=== PATIENT | male | born 1965 | race African-American/Black ===

== ENCOUNTER 2017-08-19 15:10 | Emergency (ER) | payer BC ==
[2017-08-19 15:32] VITALS: BP 127/92; PULSE 106; TEMP 99.3; BMI 28.1
--- NOTE | 2017-08-19 15:37 | PDOC ---
Rapid Medical Evaluation Chief Complaint: Cold Symptoms Time Seen by Provider: 08/19/17 15:36 Medical Evaluation: Allergies Allergy/AdvReac Type Severity Reaction Status Date / Time No Known Allergies Allergy Verified 08/19/17 15:29 Vital Signs Temp Pulse Resp BP Pulse Ox 99.3 F 106 H 17 127/92 97 08/19/17 15:29 08/19/17 15:29 08/19/17 15:29 08/19/17 15:29 08/19/17 15:29 08/19/17 15:36 Pt presents to the ED: flulike s/s since yesterday Pt on brief exam: vss, lcta Pt ordered for: influenza swab Pt to proceed to the ED
--- NOTE | 2017-08-19 16:37 | PDOC ---
History of Present Illness - General Chief Complaint: Cold Symptoms Stated Complaint: FEVER, COUGH Time Seen by Provider: 08/19/17 15:36 - History of Present Illness Initial Comments: 08/19/17 16:25 CHIEF COMPLAINT: cold symptoms HISTORY OF PRESENT ILLNESS: 51 yo M with no significant PMH presents to [facility] with body aches, subjective fever, cough, runny nose, and sore throat x 2 days. Patient denies vomiting or diarrhea. 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 SURGICAL HISTORY: Denies ALLERGIES: No known drug allergies REVIEW OF SYSTEMS General/Constitutional: Subjective fever, chills. Denies weakness, weight change. HEENT: Denies change in vision. Denies ear pain or discharge. Denies sore throat. Cardiovascular: Denies chest pain or shortness of breath. Respiratory: Persistent dry cough. Denies wheezing, hemoptysis. Gastrointestinal: Denies nausea, vomiting, diarrhea. Musculoskeletal: Body ahces. Skin: Denies rash. PHYSICAL EXAM General Appearance: Well-appearing, appropriately dressed. No apparent distressn. HEENT: Persistent dry cough. Congestion, rhinorrhea, post nasal drip. EOMI, PERRLA. No conjunctival pallor. No photophobia, scleral icterus. Respiratory/Chest: Lungs CTAB. Cardiovascular: RRR. S1, S2. Gastrointestinal/Abdominal: Normal bowel sounds. Abdomen soft, non-distended. No tenderness or rebound tenderness. No organomegaly, pulsatile mass, guarding , hernia, hepatomegaly, splenomegaly. Lymphatic: No adenopathy, tenderness. Musculoskeletal/Extremities: Normal inspection. FROM of all extremities, normal capillary refill. Pelvis Stable. No CVA tenderness. No tenderness to extremities, pedal edema, swelling, erythema or deformity. Integumentary: Appropriate color, dry, warm. 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 Fully oriented, alert. Appropriate mood/affect. Motor strength 5/5. No appreciable EOM palsy, facial droop or sensory deficit. Past History - Past Medical History Allergies/Adverse Reactions: Allergies Allergy/AdvReac Type Severity Reaction Status Date / Time No Known Allergies Allergy Verified 08/19/17 15:29 Home Medications: Ambulatory Orders Benzonatate [Tessalon Pearls -] 100 mg PO TID PRN #21 capsule 08/19/17 Ibuprofen 600 mg PO TID PRN #21 tablet 08/19/17 Pseudoephedrine HCl [Pseudoephedrine ER] 120 mg PO BID PRN #14 tablet.er Asthma: Yes COPD: No - Suicide/Smoking/Psychosocial Hx Smoking Status: No Smoking History: Never smoked Number of Cigarettes Smoked Daily: 0 Hx Alcohol Use: No Drug/Substance Use Hx: No Substance Use Type: None *Physical Exam - Vital Signs Last Vital Signs Temp Pulse Resp BP Pulse Ox 99.3 F 106 H 17 127/92 97 08/19/17 15:29 08/19/17 15:29 08/19/17 15:29 08/19/17 15:29 08/19/17 15:29 ED Treatment Course - ADDITIONAL ORDERS Additional order review: 08/19/17 15:36 Influenza Types A,B Antigen (ISABELLA) - Final Nasopharyngeal Swab - Final Medical Decision Making - Medical Decision Making 08/19/17 16:37 51 yo M with no significant PMH presents to [facility] with body aches, subjective fever, cough, runny nose, and sore throat x 2 days. Clinical presentation consistent with viral bronchitis. Will treat symptomatically. Advised patient to take medication as prescribed and follow up with PMD if symptoms persist. Advised patient of signs and symptoms for return to ED. Patient verbalized understanding and agrees to plan. *DC/Admit/Observation/Transfer Diagnosis at time of Disposition: Viral bronchitis - Discharge Dispostion Disposition: HOME Condition at time of disposition: Stable Admit: No - Prescriptions Prescriptions: Benzonatate [Tessalon Pearls -] 100 mg PO TID PRN #21 capsule PRN Reason: Cough Ibuprofen 600 mg PO TID PRN #21 tablet PRN Reason: Fever Pseudoephedrine HCl [Pseudoephedrine ER] 120 mg PO BID PRN #14 tablet.er PRN Reason: nasal congestion, runny nose - Referrals Referrals: Louis Carrera MD [Primary Care Provider] - - Patient Instructions Printed Discharge Instructions: DI for Acute Bronchitis Additional Instructions: Please take medications as prescribed. Follow up with your primary care doctor in 5-7 days if symptoms persist. If you develop any fever unrelieved by Motrin, persistent vomiting or diarrhea, or any new or worsening symptoms, please return to the ER. - Post Discharge Activity Forms/Work/School Notes: Back to Work
== END 2017-08-19 16:44 | disposition home or self-care (01) ==
LOC: JERFT 15:10
DX: J40 Bronchitis, not specified as acute or chronic (principal); B97.89 Other viral agents as the cause of diseases classified elsewhere
CPT/HCPCS: 87804; 99281-25

== ENCOUNTER 2018-11-09 09:12 | Emergency (ER) | payer BC ==
[2018-11-09 09:20] VITALS: BMI 25.0
[2018-11-09] MEDS ORDERED: ACETAMINOPHEN 325 MG TABLET (FP) PO ONE (10:03)
[2018-11-09] MEDS ORDERED: ONDANSETRON 8 MG TABLET (FP) PO ONE (10:04)
[2018-11-09] MEDS ORDERED: SODIUM CHLORIDE 1,000 ML IV STA (10:04)
--- NOTE | 2018-11-09 10:17 | PDOC ---
History of Present Illness - General Chief Complaint: Nausea/Vomiting Stated Complaint: NAUSEA/VOMITING Time Seen by Provider: 11/09/18 09:44 History Source: Patient Exam Limitations: No Limitations - History of Present Illness Initial Comments: 11/09/18 10:05 Patient is a 53 y/o male with a history of stenosis in cardiac vessels who presents today for fever, chills, nausea, and vomiting. Patient has been having these symptoms for the last few days and they have been worsening. He has not been able to keep food down. He has not taken anything to make him feel better. He also feels like his heart is beating fast and he becomes a little short of breath when vomiting. Denies any chest pain or diarrhea. 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 Past History - Past Medical History Allergies/Adverse Reactions: Allergies Allergy/AdvReac Type Severity Reaction Status Date / Time No Known Allergies Allergy Verified 11/09/18 09:20 Home Medications: Ambulatory Orders Benzonatate [Tessalon Pearls -] 100 mg PO TID PRN #21 capsule 08/19/17 Ibuprofen 600 mg PO TID PRN #21 tablet 08/19/17 Pseudoephedrine HCl [Pseudoephedrine ER] 120 mg PO BID PRN #14 tablet.er Amoxicillin/Potassium Clav [Augmentin 875-125 Tablet] 1 each PO Q12H #14 tablet 11/09/18 Azithromycin 250 mg PO DAILY #7 tablet 11/09/18 Ondansetron HCl [Zofran] 8 mg PO BID PRN #15 tablet 11/09/18 Asthma: Yes COPD: No HTN: Yes - Suicide/Smoking/Psychosocial Hx Smoking Status: No Smoking History: Never smoked Number of Cigarettes Smoked Daily: 0 Hx Alcohol Use: No Drug/Substance Use Hx: No Substance Use Type: None Review of Systems - Review of Systems Constitutional: Yes: Chills, Fever, Weakness HEENTM: No: Eye Pain Respiratory: No: Cough, Shortness of Breath Cardiac (ROS): No: Chest Pain ABD/GI: Yes: Nausea, Vomiting. No: Abdominal Distended, Diarrhea : No: Dysuria, Discharge *Physical Exam - Vital Signs Last Vital Signs Temp Pulse Resp BP Pulse Ox 102.5 F H 114 H 20 140/78 98 11/09/18 09:17 11/09/18 09:17 11/09/18 09:17 11/09/18 09:17 11/09/18 09:17 - Physical Exam Comments: 11/09/18 10:10 GENERAL: A&O x3, mild distress HEENT: EOMI, pharynx non erythematous HEART: RRR, no murmurs, rubs, or gallops LUNGS: CTAL B/L ABDOMEN: soft, nontender, non distended EXTREMITIES: no pitting edema SKIN; no rashes or ulcers noted ED Treatment Course - LABORATORY CBC & Chemistry Diagram: 11/09/18 10:38 11/09/18 10:38 Medical Decision Making - Medical Decision Making 11/09/18 10:18 r/o influenza with flu swab tylenol for fever, zofran for nausea, 1 L bolus f/u CBC and CMP 11/09/18 14:35 influenza negative, HIV negative PNA seen on CT scan Azithromycin and Augmentin given, symptomatically better discussed admission with patient but patient refuses, discussed AMA prescribed antibiotics for infxn to take as an outpatient Discussion at the bedside with patient and family. Pt has capacity to make medical decisions. Discussed indications for treatment and admission, management plan, risks and benefits. There is no evidence of psychosis, altered mental status or intoxication. Pt understands the nature of condition and treatment plan, including potential risks but not limited to: cardiac arrest, severe infection, dehydration, myocardial infarction, arrhythmia, stroke, respiratory failure, delay in diagnosis and management, loss of current lifestyle, multiorgan failure, coma, severe disability and . Pt will be treated with 1 week and close follow up with primary care doctor with reevaluation. Return precautions advised, call 911 immediately if severe life threatening symptoms or concerns.. Pt has verbalized understanding of information provided, questions answered. The patient did sign AMA paperwork. The above discussion was witnessed by another member of staff. *DC/Admit/Observation/Transfer Diagnosis at time of Disposition: Pneumonia Qualifiers: Pneumonia type: due to unspecified organism Laterality: right Lung location: lower lobe of lung Qualified Code(s): J18.1 - Lobar pneumonia, unspecified organism - Discharge Dispostion Disposition: AGAINST MEDICAL ADVICE - Prescriptions Prescriptions: Amoxicillin/Potassium Clav [Augmentin 875-125 Tablet] 1 each PO Q12H #14 tablet Azithromycin 250 mg PO DAILY #7 tablet Ondansetron HCl [Zofran] 8 mg PO BID PRN #15 tablet PRN Reason: Nausea - Referrals Referrals: Leeann Koenig [Primary Care Provider] - - Patient Instructions Printed Discharge Instructions: DI for Pneumonia -- Adult Additional Instructions: While in the Emergency Department you were found to have a Pneumonia. We treated you with antibiotics. We believe that you should stay in the hospital and be treated, despite you wanting to leave. For continued treatment of your Pneumonia please take: Augmentin 875mg twice a day, 8 am and 8pm by mouth for 7 days Azithromycin 250 mg once a day by mouth for 7 days. For your nausea please take: Zofran 8 mg twice a day by mouth as needed For your fever please take: Tylenol every 4 hours as needed, do not exceed the maximum amount as stated on the bottle Please understand the nature of your condition and treatment plan, including potential risks but not limited to: cardiac arrest, severe infection, dehydration, myocardial infarction, arrhythmia, stroke, respiratory failure, delay in diagnosis and management, loss of current lifestyle, multiorgan failure , coma, severe disability and . Please make a follow up appointment with your primary care physician within one week. They should do a CBC to recheck the infection. Please return to the Emergency room if your fever returns, you have worsening of symptoms, shortness of breath, continued nausea, cannot tolerate liquids, diarrhea, or chest pain. - Post Discharge Activity
[2018-11-09] MEDS ORDERED: ONDANSETRON 4 MG/2 ML VIAL IVPUSH ONE (10:32)
[2018-11-09] MEDS ORDERED: FAMOTIDINE 20 MG/50 ML IVPB 20 MG/50 ML MG IVPB ONE ×2 (10:32→10:33)
[2018-11-09] MEDS ORDERED: ACETAMINOPHEN 1000 MG/100 ML VIAL (NON FORMULARY) IVPB ONE (10:32)
[2018-11-09] MEDS ORDERED: ACETAMINOPHEN INJECTION 100 ML IVPB ONE (10:33)
[2018-11-09] MEDS ORDERED: ONDANSETRON 4 MG/2 ML VIAL ONE (10:33)
--- NOTE | 2018-11-09 10:47 | PDOC ---
Attending Attestation - Resident Resident Name: Jordyn Diallo - ED Attending Attestation I have performed the following: I have examined & evaluated the patient, The case was reviewed & discussed with the resident, I agree w/resident's findings & plan - HPI HPI: 11/09/18 10:41 53 YOM with h/o nonobstructive CAD s/p cath, no stents presenting with fever, chills, malaise, diffuse abdominal pain, n/v, difficulty tolerating PO intake x 2-3 days No travel or sick contacts. Multiple episodes of NBNB emesis all night. +cough. 11/09/18 11:31 - Physicial Exam PE: 11/09/18 10:41 malaised appearing, PERRL, EOMI, nl conjunctiva, anicteric; oropharynx clear, dry membranes, neck supple. lungs clear, +tachy, abdomen soft diffusely tender, worse in epigastrium. MCMULLEN x4, No peripheral edema. normal color for ethnicity, WWP. very warm/tactile fever. - Medical Decision Making 11/09/18 10:42 See HPI for details Vital signs reviewed, +fever, tachycardia; no hypoxia, no respiratory distress. ddx viral syndrome, URI, influenza, pneumonia, pleurisy, dehydration, febrile illness. hepatitis. bacteremia. Prior notes reviewed, including admissions, discharges and consultations. laboratory results and imaging reviewed, basic labs and lytes notable for + significant leukocytosis of 26K, lytes and lactic normal. septic workup, blood and urine cultures. HIV testing pending flu swab neg CXR_no acute chest pathology ED course - IVF, hydration, tylenol, pepcid and zofran, reassess - VS improved, on reassessment. feels improved, defervesced - CT a/p neg for pathology, tiny appendicolith present,no inflammatory changes. +RLL consolidation noted, treat as pneumonia - CAP coverage with cef/azithro. - planned for admission, but pt declines admission, has follow up with PMD that can be arranged, will rx abx augmentin and azithromycin for coverage of CAP, zofran for nausea, supportive care and hydration Discussion at the bedside with patient and family. Pt has capacity to make medical decisions. Discussed indications for treatment and admission, management plan, risks and benefits. There is no evidence of psychosis, altered mental status or intoxication. Pt understands the nature of condition and treatment plan, including potential risks but not limited to: cardiac arrest, severe infection, dehydration, myocardial infarction, arrhythmia, stroke, respiratory failure, delay in diagnosis and management, loss of current lifestyle, multiorgan failure, coma, severe disability and . Pt will be treated with 1 week and close follow up with primary care doctor with reevaluation. Return precautions advised, call 911 immediately if severe life threatening symptoms or concerns.. Pt has verbalized understanding of information provided, questions answered. The patient did sign AMA paperwork. The above discussion was witnessed by another member of staff. 11/09/18 14:16 11/09/18 14:19 11/09/18 14:34
[2018-11-09 10:54] LABS: HEMATOCRIT 37.6 % (35.4-49); HEMOGLOBIN 12.9 GM/dL (11.7-16.9); MCH 30.1 pg (25.7-33.7); MCHC 34.4 g/dl (32.0-35.9); MEAN CELL VOLUME 87.4 fl (80-96); MEAN PLT VOLUME 8.2 fl (7.5-11.1); PLATELET COUNT 217 K/MM3 (134-434); RDW 13.4 % (11.9-15.9); WHITE BLOOD COUNT 26.9 K/mm3 (4.0-10.0)
[2018-11-09] MEDS ORDERED: SODIUM CHLORIDE 0.9% 500 ML INFUS.BAG IV ONE (11:30)
[2018-11-09 11:31] LABS: ALBUMIN 3.6 g/dl (3.4-5.0); ALK PHOS 69 U/L (45-117); ANION GAP 8 MMOL/L (8-16); BILIRUBIN,TOTAL 1.2 mg/dL (0.2-1); BLOOD UREA NITROGEN 15 mg/dL (7-18); CALCIUM 8.9 mg/dL (8.5-10.1); CHLORIDE 100 mmol/L (98-107); CO2 24 mmol/L (21-32); CREATININE 0.9 mg/dL (0.55-1.3); GLUCOSE,RANDOM 105 mg/dL (74-106); POTASSIUM 3.8 mmol/L (3.5-5.1); SGOT/AST 19 U/L (15-37); SGPT/ALT 19 U/L (13-61); SODIUM 132 mmol/L (136-145); TOT PROT 7.7 g/dl (6.4-8.2)
[2018-11-09] MEDS ORDERED: CEFTRIAXONE 1,000 MG in DEXTROSE 5%-WATER - 50 ML IVPB ONE (13:04)
[2018-11-09] MEDS ORDERED: AZITHROMYCIN 250 MG TABLET PO ONE (13:04)
[2018-11-09] MEDS ORDERED: AZITHROMYCIN 250 MG TABLET ONE (13:13)
[2018-11-09] MEDS ORDERED: CEFTRIAXONE 1 GM/50 ML BAG ONE (13:14)
[2018-11-09 13:25] VITALS: BP 112/73; PULSE 95; TEMP 98
== END 2018-11-09 14:30 | disposition left against medical advice (07) ==
LOC: JER 09:12
PROC: 3E0337Z Introduction of Electrolytic and Water Balance Substance into Peripheral Vein, Percutaneous Approach (ICD-10-PCS; principal; 2018-11-09)
PROC: 3E033GC Introduction of Other Therapeutic Substance into Peripheral Vein, Percutaneous Approach (ICD-10-PCS; 2018-11-09)
PROC: 3E03329 Introduction of Other Anti-infective into Peripheral Vein, Percutaneous Approach (ICD-10-PCS; 2018-11-09)
PROC: 3E033GC Introduction of Other Therapeutic Substance into Peripheral Vein, Percutaneous Approach (ICD-10-PCS; 2018-11-09)
DX: J18.1 Lobar pneumonia, unspecified organism (principal)
CPT/HCPCS: 36415; 71046-TC-FY; 74177-TC; 80053; 83605; 84484; 85027; 87040; 87389; 87804; 99282-25; J0131; J7030

== ENCOUNTER 2018-11-17 14:18 | Inpatient (IN) | payer BC ==
--- NOTE | 2018-11-17 16:06 | PDOC ---
History of Present Illness - General Chief Complaint: Respiratory Stated Complaint: RT SIDE LUNG PAIN Time Seen by Provider: 11/17/18 16:02 History Source: Patient - History of Present Illness Associated Symptoms: reports: cough, fever/chills Past History - Past Medical History Allergies/Adverse Reactions: Allergies Allergy/AdvReac Type Severity Reaction Status Date / Time contrast dye AdvReac Uncoded 11/17/18 14:59 Home Medications: Ambulatory Orders Metoprolol Succinate [Kapspargo Sprinkle] 25 mg PO DAILY 11/17/18 Asthma: Yes COPD: No HTN: Yes - Suicide/Smoking/Psychosocial Hx Smoking Status: No Smoking History: Never smoked Number of Cigarettes Smoked Daily: 0 Hx Alcohol Use: No Drug/Substance Use Hx: No Substance Use Type: None Review of Systems - Review of Systems Constitutional: Yes: Chills, Fever Respiratory: Yes: Cough, Shortness of Breath. No: Wheezing, Hemoptysis Cardiac (ROS): No: Chest Pain *Physical Exam - Vital Signs Last Vital Signs Temp Pulse Resp BP Pulse Ox 99.2 F 84 18 108/75 100 11/17/18 15:00 11/17/18 15:00 11/17/18 15:00 11/17/18 15:00 11/17/18 15:00 - Physical Exam General Appearance: Yes: Appropriately Dressed. No: Apparent Distress HEENT: positive: Normal Voice Neck: positive: Supple Respiratory/Chest: positive: Decreased Breath Sounds (on the R). negative: Respiratory Distress Integumentary: positive: Dry, Warm Neurologic: positive: Fully Oriented, Alert, Normal Mood/Affect ED Treatment Course - LABORATORY CBC & Chemistry Diagram: 11/17/18 16:17 11/17/18 16:17 - RADIOLOGY Radiology Studies Ordered: Category Date Time Status CHEST PA & LAT [RAD] Stat Radiology 11/17/18 16:05 Ordered Medical Decision Making - Medical Decision Making 11/17/18 16:05 53 yo M, non-obs cath, here w/ continued subj fever w/ chills, cough and SOB. Patient was seen in ED 11/09 and dx with RLL PNA that was picked up on CT scan but left AMA after given a dose of zithromax and ceftriaxone here. States "I had things to take care of". Was given prescription for augmentin and azithromycin, which patient states he completed but continues to have malaise with chills, cough, and possible shortness of breath. Was seen by his PMD today , Dr Carrera, and had a chest x-ray done which was read as right-sided empyema per rx note sent in with pt. Sent in for admission. Patient denies any hemoptysis. Of note blood cx and HIV negative on last visit. See exam PNA Left AMA 11/09 Continues to have sxs despite completed augmentin/azithro Stable w/ decreased BS on the R -labs -cxr -abx -admit 11/17/18 17:22 Admitted to hospitalist. Abx in progress 11/17/18 18:21 Chest x-ray read as possible atelectasis to right base. No obvious infiltrate seen. Will get dry CT of chest for better evaluation at this time *DC/Admit/Observation/Transfer Diagnosis at time of Disposition: Pneumonia Qualifiers: Pneumonia type: due to unspecified organism Laterality: right Lung location: lower lobe of lung Qualified Code(s): J18.1 - Lobar pneumonia, unspecified organism - Discharge Dispostion Condition at time of disposition: Fair Decision to Admit order: Yes - Referrals - Patient Instructions - Post Discharge Activity
[2018-11-17 16:31] LABS: BASO % 0.5 % (0-2.0); HEMATOCRIT 38.3 % (35.4-49); HEMOGLOBIN 12.8 GM/dL (11.7-16.9); LYMPH % 19.9 % (8-40); MCH 29.6 pg (25.7-33.7); MCHC 33.4 g/dl (32.0-35.9); MEAN CELL VOLUME 88.6 fl (80-96); MEAN PLT VOLUME 7.6 fl (7.5-11.1); MONO % 8.1 % (3.8-10.2); NEUT % 66.5 % (42.8-82.8); PLATELET COUNT 387 K/MM3 (134-434); RBC 4.32 M/mm3 (4.00-5.60); RDW 13.4 % (11.9-15.9); WHITE BLOOD COUNT 11.7 K/mm3 (4.0-10.0)
[2018-11-17] MEDS ORDERED: VANCOMYCIN 1,000 MG in DEXTROSE 5%-WATER - 250 ML IVPB ONE (16:34)
[2018-11-17] MEDS ORDERED: PIPERACILLIN/TAZOB 3.375 GM 3.375 GM in DEXTROSE 5%-WATER - 50 ML IVPB ONE (16:34)
[2018-11-17] MEDS ORDERED: VANCOMYCIN 1 GRAM (PRE-DOCKED) 1,000 MG/250 ML BAG IVPB ONE ×2 (16:45→23:21)
[2018-11-17 17:04] LABS: ALBUMIN 3.6 g/dl (3.4-5.0); ALK PHOS 65 U/L (45-117); ANION GAP 7 MMOL/L (8-16); BILIRUBIN,TOTAL 0.3 mg/dL (0.2-1); BLOOD UREA NITROGEN 12 mg/dL (7-18); CHLORIDE 103 mmol/L (98-107); CO2 28 mmol/L (21-32); CREATININE 0.9 mg/dL (0.55-1.3); GLUCOSE,RANDOM 94 mg/dL (74-106); POTASSIUM 4.4 mmol/L (3.5-5.1); SGOT/AST 18 U/L (15-37); SGPT/ALT 21 U/L (13-61); SODIUM 138 mmol/L (136-145)
[2018-11-17] MEDS ORDERED: PIPERACILLIN/TAZOB 3.375 GM 3.375 GM/50 ML BAG IVPB ONE ×2 (17:58→18:07)
[2018-11-17] MEDS ORDERED: DOCUSATE SODIUM 100 MG CAPSULE (FP) PO PRN (20:49)
[2018-11-17] MEDS ORDERED: METOCLOPRAMIDE HCL INJECTION 10 MG/2 ML VIAL IVPUSH PRN (20:49)
[2018-11-17] MEDS ORDERED: ACETAMINOPHEN 325 MG TABLET (FP) ONE (21:02)
[2018-11-17] MEDS: ACETAMINOPHEN 325 MG TABLET (FP) PO PRN (21:11)
[2018-11-17] MEDS: SENNOSIDES 8.6MG TABLET (FP) PO SCH (21:11)
--- NOTE | 2018-11-17 21:12 | HP ---
Admitting History and Physical - Admission Chief Complaint: fever and cough History of Present Illness: 53 yo M with PMH of non-obstructive CAD on [facility] in 2018 presents to ED at the urging of his PCP for evaluation of protracted cough, fever due to persistent PNA. Pt initially presented to urgent care on 11/08 with cough, malaise and fever , where he was told he had the FLU. However, due to progressive symptoms of nausea, vomiting, fever, cough and chills he presented to ED for evaluation. Rapid Flu A and B negative. Pt noted to be tachycardic (HR 114bpm) and febrile ( temp 102.5F). CT scan on 11/09 demonstrated RLL PNA, inpatient treatment was recommended, however, pt refused and left against medical advice. He was treated in ED with IVF, Zofran, tylenol and given oral Azith and augmentin x 7days. Patient completed Antibiotic course and followed up with PCP today 11/17. He reported continued fever and cough, which prompted a repeat CXR which was interpreted as right sided empyema. Thus, pt referred to ED for admission. In ED; vitals were BP 108/75, HR 84, RR 18, T 99.2, O2 sat 100% WBC 11.7, otherwise labs within normal parameters. Blood culture sent. chest CT with mild right lung base consolidation/infiltrate with small right pleural effusion. Pt treated with vanco and Zosyn in ED. Decision made to admit for intensive management of RLL PNA. 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 History of Recent Travel: No Home Medications - Allergies Allergies/Adverse Reactions: Allergies Allergy/AdvReac Type Severity Reaction Status Date / Time Iodinated Contrast- Oral and Allergy Verified 11/17/18 18:50 IV Dye contrast dye AdvReac Uncoded 11/17/18 14:59 - Home Medications Home Medications: Ambulatory Orders Aspirin [Ecotrin] 81 mg PO DAILY 11/17/18 Metoprolol Succinate [Kapspargo Sprinkle] 25 mg PO DAILY 11/17/18 Family Disease History - Family Disease History Family Disease History: Other: Father (alive (87) CAD s/p PCI), Mother (alive ( 76) pre-DM, migraines) Review of Systems - Review of Systems Constitutional: reports: Chills, Lethargy, Weakness Eyes: reports: No Symptoms HENT: reports: No Symptoms Neck: reports: No Symptoms Cardiovascular: reports: No Symptoms Respiratory: reports: Cough Gastrointestinal: reports: Nausea Genitourinary: reports: No Symptoms Breasts: reports: No Symptoms Reported Musculoskeletal: reports: No Symptoms Integumentary: reports: No Symptoms Neurological: reports: No Symptoms Endocrine: reports: No Symptoms Hematology/Lymphatic: reports: No Symptoms Psychiatric: reports: No Symptoms Physical Examination Vital Signs: Vital Signs Temperature 99.5 F 11/17/18 18:30 Pulse Rate 84 11/17/18 18:30 Respiratory Rate 20 11/17/18 18:30 Blood Pressure 112/78 11/17/18 18:30 O2 Sat by Pulse Oximetry (%) 95 11/17/18 18:30 Constitutional: Yes: Well Nourished, No Distress, Calm Eyes: Yes: Conjunctiva Clear, EOM Intact, PERRL HENT: Yes: Atraumatic, Normocephalic Neck: Yes: Supple, Trachea Midline Cardiovascular: Yes: Regular Rate and Rhythm, Murmur (4/6SM across precordium) Respiratory: Yes: Regular, Diminished (at the right base) Gastrointestinal: Yes: Normal Bowel Sounds, Soft ...Rectal Exam: Yes: Deferred Musculoskeletal: Yes: WNL Extremities: Yes: WNL Edema: No Peripheral Pulses: Left Radial: 2+, Right Radial: 2+ Integumentary: Yes: WNL Neurological: Yes: WNL ...Motor Strength: WNL Psychiatric: Yes: WNL Labs: CBC, BMP 11/17/18 16:17 11/17/18 16:17 Imaging - Results Chest X-ray: Report Reviewed (CXR 11/17/2018 Chest: Pneumonia. 2 views of the chest reveal clearing of the left base atelectasis since 11/09/2018. There may be some new posterior sulcus atelectasis on the right. The remainder the study is unremarkable. Correlation recommended. Reported by Russ Valdez MD) Cat Scan: Report Reviewed (Chest CT 11/17/2018 Impression: Mild right lung base consolidation/infiltrates with a small right pleural effusion. Follow-up is needed. No pneumothorax is identified. No enlarged mediastinal or hilar lymph nodes are identified. Mild calcification of the coronary arteries. There is focal irregular calcific density seen at the region of the aortic valve. Cardiology consult is suggested. Reported By: Kevin Naik MD 11/17/18 1950) Problem List - Problems (1) Systolic murmur Assessment/Plan: echo ordered Code(s): R01.1 - CARDIAC MURMUR, UNSPECIFIED (2) Prophylactic measure Assessment/Plan: Ambulate OOB to chair heparin SC daily Code(s): Z29.9 - ENCOUNTER FOR PROPHYLACTIC MEASURES, UNSPECIFIED (3) HTN (hypertension) Assessment/Plan: cardiac diet Toprol XL daily Code(s): I10 - ESSENTIAL (PRIMARY) HYPERTENSION (4) Pneumonia Assessment/Plan: ID consult placed Vanco/Zosyn trend WBC and fever curve tylenol PRN fever Code(s): J18.9 - PNEUMONIA, UNSPECIFIED ORGANISM Qualifiers: Pneumonia type: due to unspecified organism Laterality: right Lung location: lower lobe of lung Qualified Code(s): J18.1 - Lobar pneumonia, unspecified organism Assessment/Plan bowel regimen with senna and colace DVT: ASA 81mg and SC heparin daily DISPO: Full code Visit type - Emergency Visit Emergency Visit: Yes ED Registration Date: 11/17/18 Care time: The patient presented to the Emergency Department on the above date and was hospitalized for further evaluation of their emergent condition. - New Patient This patient is new to me today: Yes Date on this admission: 11/17/18 - Critical Care Critical Care patient: No
[2018-11-17] MEDS ORDERED: VANCOMYCIN 1 GM PREMIX - 1 GM/200 ML BAG IVPB SCH (22:00)
[2018-11-18] MEDS ORDERED: PIPERACILLIN/TAZOB 2.25 GM 2.25 GM in DEXTROSE 5%-WATER - 50 ML IVPB SCH
[2018-11-18] MEDS ORDERED: PIPERACILLIN/TAZOB 2.25 GM 2.25 GM/50 ML BAG IVPB ONE ×2 (01:48→11:09)
[2018-11-18] MEDS: PIPERACILLIN/TAZOB 2.25 GM 2.25 GM in DEXTROSE 5%-WATER - 50 ML IVPB SCH ×2 (02:08→11:21)
[2018-11-18 05:05] LABS: PH,URINE 5.5 (5.0-8.0); URINE APPEARANCE CLEAR; URINE BILIRUBIN NEGATIVE (NEGATIVE); URINE COLOR YELLOW; URINE GLUCOSE (UA) NEGATIVE (NEGATIVE); URINE KETONE NEGATIVE (NEGATIVE); URINE LEUK ESTERASE NEGATIVE (NEGATIVE); URINE NITRITE NEGATIVE (NEGATIVE); URINE PROTEIN NEGATIVE (NEGATIVE); URINE UROBILINOGEN 0.2 mg/dL (0.2-1.0)
[2018-11-18] MEDS: ACETAMINOPHEN 325 MG TABLET (FP) PO PRN ×2 (05:35→17:43)
[2018-11-18 06:36] LABS: BASO % 0.6 % (0-2.0); EOS % 6.1 % (0-4.5); HEMATOCRIT 34.2 % (35.4-49); HEMOGLOBIN 11.9 GM/dL (11.7-16.9); LYMPH % 25.4 % (8-40); MCH 30.1 pg (25.7-33.7); MCHC 34.7 g/dl (32.0-35.9); MEAN CELL VOLUME 86.7 fl (80-96); MEAN PLT VOLUME 7.5 fl (7.5-11.1); MONO % 8.6 % (3.8-10.2); NEUT % 59.3 % (42.8-82.8); PLATELET COUNT 351 K/MM3 (134-434); RBC 3.95 M/mm3 (4.00-5.60); WHITE BLOOD COUNT 9.4 K/mm3 (4.0-10.0)
[2018-11-18 06:50] LABS: INR 1.23 (0.83-1.09); PROTHROMBIN TIME (PATIENT) 14.5 SEC (9.7-13.0)
[2018-11-18 07:03] LABS: ALK PHOS 54 U/L (45-117); ANION GAP 7 MMOL/L (8-16); BILIRUBIN,TOTAL 0.4 mg/dL (0.2-1); BLOOD UREA NITROGEN 13 mg/dL (7-18); CALCIUM 8.2 mg/dL (8.5-10.1); CHLORIDE 105 mmol/L (98-107); CO2 29 mmol/L (21-32); GLUCOSE,RANDOM 82 mg/dL (74-106); POTASSIUM 4.3 mmol/L (3.5-5.1); SGOT/AST 12 U/L (15-37); SGPT/ALT 19 U/L (13-61); SODIUM 141 mmol/L (136-145); TOT PROT 6.8 g/dl (6.4-8.2)
--- NOTE | 2018-11-18 08:56 | PN ---
Progress Note (short form) - Note Progress Note: 53 yo man developed cough fever chills 8-10 days ago went to urgent care was told he had flu, took tamiflu developed abd discomfort and did not feel better so came to er on 11.09.18 ct abd showed right lung consolidation, white count was 26 000, he did not want to stay so he went home on oral augmentin and zpack he saw dr perez last week for pleurititc right sided chest pain, was given naproxen he was told to repeat cxr in December, however he did it yesterday showing right sided infiltrate so he was sent back to er in er chest CT with mid right base infiltrate and pleural effusion, WBC down to 11 000 overall better though, still with some pleuritic pain CBC, BMP 11/18/18 05:30 11/18/18 05:30 S1s2 rrr lungs cta abd soft NT no edema aaox3 community acquired pna will wait for id input but clinically better, would f/up imaging in 4-6 weeks possibly dc planning
[2018-11-18 09:28] LABS: ERYTHROCYTE SEDIMENTATION RATE 71 mm/hr (0-20)
[2018-11-18] MEDS: ASPIRIN 81 MG CHEWABLE TABLETS PO SCH (11:21)
[2018-11-18] MEDS: HEPARIN NA (PORCINE) 5,000 UNITS/ML 1ML VIAL SQ SCH (11:21)
[2018-11-18] MEDS: metoPROLOL SUCCINATE 25 MG TAB.SR.24H (FP) PO SCH (11:21)
--- NOTE | 2018-11-18 11:58 | PN ---
Progress Note (short form) - Note Progress Note: ID CONSULT DICTATED COMMUNITY ACQ V ATYPICAL RLL PNA R PLEURAL EFFUSION AWAIT W/U CONTINUE ZOSYN
--- NOTE | 2018-11-18 12:11 | ECHO ---
Name: EDINSON ARNOLD Exam:Adult Echocardiogram Study Date: 11/18/2018 08:07 AM Age: 53 yrs Reason For Study: SYSTOLIC MURMUR Height: 67 in Weight: 170 lb BSA: 1.9 m2 MMode/2D Measurements & Calculations IVSd: 0.92 cm Ao root diam: 3.2 cm LVIDd: 4.9 cm LA dimension: 3.7 cm LVIDs: 3.2 cm LVPWd: 0.77 cm EDV(Teich): 112.2 ml LVOT diam: 2.2 cm ESV(Teich): 41.4 ml Doppler Measurements & Calculations MV E max eran: 77.1 cm/sec Ao V2 max: 284.9 cm/sec MV A max eran: 72.1 cm/sec Ao max P.7 mmHg MV E/A: 1.1 Ao V2 mean: 204.5 cm/sec MV dec time: 0.18 sec Ao mean P.1 mmHg Ao V2 VTI: 59.3 cm KELSEY(I,D): 1.5 cm2 AI P1/2t: 459.5 msec KELSEY(V,D): 1.3 cm2 AI max eran: 227.3 cm/sec LV V1 max P.9 mmHg AI max P.7 mmHg LV V1 mean P.0 mmHg AI dec slope: 144.9 cm/sec2 LV V1 max: 98.7 cm/sec LV V1 mean: 65.0 cm/sec LV V1 VTI: 23.1 cm MR max eran: 467.0 cm/sec SV(LVOT): 86.6 ml MR max P.9 mmHg TR max eran: 239.6 cm/sec Med Peak E' Eran: 6.6 cm/sec TR max P.2 mmHg Med E/e': 11.7 Lat Peak E' Eran: 6.8 cm/sec Lat E/e': 11.3 Procedure A two-dimensional transthoracic echocardiogram with color flow and Doppler was performed. The study w as technically difficult with many images being suboptimal in quality. The patient was in normal sinus r hythm during the exam. Left Ventricle Left ventricular systolic function is normal. Ejection Fraction = 60%. Right Ventricle The right ventricle is normal in size and function. Atria The left atrial size is normal. Right atrial size is normal. Mitral Valve The mitral valve is normal. There is mild mitral regurgitation. Tricuspid Valve The tricuspid valve is normal. There was insufficient TR detected to calculate RV systolic pressure. There is trace tricuspid regurgitation. Aortic Valve The aortic valve is not well visualized. There is moderate aortic sclerosis.;. Unable to determine if aortic valve is trileaflet or bicuspid. Suggest further dedicated imaging to determine aortic valve morpholo gy. Mild to moderate valvular aortic stenosis. Mild aortic regurgitation. Pulmonic Valve The pulmonic valve is not well visualized. The pulmonic valve is not well seen, but is grossly normal . There is no pulmonic valvular regurgitation. Great Vessels Mild aortic root dilatation. Mildly dilated ascending aorta. The ascending aorta is 3.8 cm. Pericardium/Pleura There is no pericardial effusion. Interpretation Summary Mildly dilated ascending aorta. The aortic valve is not well visualized. There is moderate aortic sclerosis.; Unable to determine if aortic valve is trileaflet or bicuspid. Suggest further dedicated imaging to d etermine aortic valve morphology. Mild to moderate valvular aortic stenosis. There is mild mitral regurgitation. There is trace tricuspid regurgitation. Left ventricular systolic function is normal. The right ventricle is normal in size and function. There is no pericardial effusion. MD Ezekiel Lanier 11/18/2018 12:11 PM
--- NOTE | 2018-11-18 13:31 | CONS ---
DATE OF CONSULTATION: DATE OF DICTATION: 11/18/2018 HISTORY OF PRESENT ILLNESS: The patient is a 53-year-old male with a history of coronary artery disease evaluated for right lower lobe pneumonia. Patient states he has been feeling ill for approximately 10 days. 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 He states he developed an upper respiratory tract syndrome. He presented to an urgent care center on November 08, where he was evaluated and diagnosed with the flu. He was prescribed Tamiflu. However, he only took one dose and stopped because of stomach upset. Symptoms worsened. He became more short of breath with cough, nausea, fever, and chills. He presented to the emergency room on November 09, where he was diagnosed with pneumonia. He was noted to have a white blood cell count of 26,000 and was febrile to 102.5. He received a dose of Zithromax and ceftriaxone and then signed out against medical advice. He was prescribed Zithromax and Augmentin, which he states he took. He completed a course of both. He was seen in followup by his primary care physician who did an x-ray and was concerned about the possibility of fluid collection at the right base. He was referred to the hospital for admission. At the present time, he is awake and alert. He is seated on the stretcher. He is not acutely short of breath, however, he complains of right-sided pleuritic pain with deep inspiration and cough. He does have a cough. He denies any purulent sputum production or hemoptysis. He is presently afebrile. 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 He is a nonsmoker, nondrinker. He lives at home with his significant other. He tested HIV negative. He denies any risk factors for HIV. He is originally from the [place]. He has been living in the [place] since he was 19. No recent travel. He has not received influenza or pneumococcal vaccines. PAST MEDICAL HISTORY: Positive for coronary artery disease, hypercholesterolemia. ALLERGIES: To IODINE and CONTRAST. MEDICATIONS: Include metoprolol. SOCIAL HISTORY: As per HPI. SYSTEMS REVIEW: Neurologic: No loss of consciousness, seizure activity, or focal weakness. Cardiac: Negative for chest pain or palpitations. Respiratory: As per HPI. Gastrointestinal: Negative for vomiting or diarrhea. Genitourinary: Negative for urinary tract infection. LABORATORY DATA: White count 9.4, 59 neutrophils, 25 lymphocytes, 8 monocytes, 6 eosinophils. BUN 13, creatinine 1.9. Liver enzymes normal. C-reactive protein 6.0. 71. Urinalysis negative. CT scan of the chest shows a small right pleural effusion with associated consolidated lung. PHYSICAL EXAMINATION: General: He is awake and alert. He is seated on the stretcher. Vital signs: Temperature 98.1, blood pressure 124/68, pulse 76 and regular, respirations 20 per minute. HEENT: Sclerae anicteric. Heart: Heart sounds S1, S2. Lungs: Diminished breath sounds at the right base. Abdomen: Soft. No tenderness elicited. No mass, rebound, or rigidity. Extremities: Negative for edema. IMPRESSION: 1. Right lower lobe pneumonia community-acquired versus atypical. Rule out viral pneumonitis. 2. Possible sepsis secondary to pulmonary source. Obtain sputum cultures, urine legionella, and pneumococcal antigens, repeat influenza swab, in light of recent treatment with Augmentin and Zithromax, continue Zosyn for treatment of possible resistant pulmonary pathogens, follow up CBC as patient is noted to have a eosinophilia. Case discussed with primary care physician. Will follow. Thank you for the kind referral. ADELITA MARINA M.D. STEFANIE/[id number]
--- NOTE | 2018-11-18 14:28 | EKG ---
Test Reason : Blood Pressure : / mmHG Vent. Rate : 088 BPM Atrial Rate : 088 BPM P-R Int : 136 ms QRS Dur : 078 ms QT Int : 368 ms P-R-T Axes : 051 000 005 degrees QTc Int : 445 ms NORMAL SINUS RHYTHM POSSIBLE LEFT ATRIAL ENLARGEMENT BORDERLINE ECG NO PREVIOUS ECGS AVAILABLE Confirmed by MD Erich, Dk ([id number]) on 11/18/2018 2:28:14 PM Referred By: Confirmed By:Dk Jung MD
[2018-11-18 15:47] VITALS: BMI 26.2
[2018-11-18] MEDS ORDERED: DEXTROSE 5%-WATER - 50 ML IVPB ONE (17:16)
[2018-11-18] MEDS ORDERED: PIPERACILLIN/TAZOBACTAM 3.375 GM VIAL IVPB ONE (17:16)
[2018-11-18] MEDS: PIPERACILLIN/TAZOB 3.375 GM 3.375 GM in DEXTROSE 5%-WATER - 50 ML IVPB SCH (17:43)
[2018-11-18] MEDS: SENNOSIDES 8.6MG TABLET (FP) PO SCH (21:46)
[2018-11-18] MEDS ORDERED: VANCOMYCIN 1 GM PREMIX - 1 GM/200 ML BAG IVPB SCH (22:00)
[2018-11-19] MEDS ORDERED: DEXTROSE 5%-WATER - 50 ML IVPB ONE ×3 (00:49→17:26)
[2018-11-19] MEDS ORDERED: PIPERACILLIN/TAZOBACTAM 3.375 GM VIAL IVPB ONE ×3 (00:49→17:26)
[2018-11-19] MEDS: PIPERACILLIN/TAZOB 3.375 GM 3.375 GM in DEXTROSE 5%-WATER - 50 ML IVPB SCH ×3 (02:20→18:30)
[2018-11-19] MEDS: ACETAMINOPHEN 325 MG TABLET (FP) PO PRN ×2 (03:03→21:01)
[2018-11-19] MEDS: ASPIRIN 81 MG CHEWABLE TABLETS PO SCH (10:38)
[2018-11-19] MEDS: HEPARIN NA (PORCINE) 5,000 UNITS/ML 1ML VIAL SQ SCH (10:38)
[2018-11-19] MEDS: metoPROLOL SUCCINATE 25 MG TAB.SR.24H (FP) PO SCH (10:38)
--- NOTE | 2018-11-19 13:21 | PN ---
Progress Note (short form) - Note Progress Note: feels well, scant cough CBC, BMP 11/18/18 05:30 11/18/18 05:30 Vital Signs Period Temp Pulse Resp BP Sys/Akers Pulse Ox Last 24 Hr 98 F-100.2 F 71-84 18-20 113-129/63-87 98-100 S1s2 rrr lungs cta abd soft NT no edema aaox3 community acquired pna-likely partially treated still with low grade temp overnight cont iv zosyn for now echo reviewed-known CAD as per pt, will need outpt cardiac rehab
[2018-11-19] MEDS: SENNOSIDES 8.6MG TABLET (FP) PO SCH (21:03)
[2018-11-20] MEDS ORDERED: PIPERACILLIN/TAZOBACTAM 3.375 GM VIAL IVPB ONE ×2 (01:47→10:48)
[2018-11-20] MEDS ORDERED: DEXTROSE 5%-WATER - 50 ML IVPB ONE ×2 (01:47→10:48)
[2018-11-20] MEDS: PIPERACILLIN/TAZOB 3.375 GM 3.375 GM in DEXTROSE 5%-WATER - 50 ML IVPB SCH ×2 (02:18→11:03)
[2018-11-20 07:38] LABS: BASO % 0.9 % (0-2.0); EOS % 6.8 % (0-4.5); HEMATOCRIT 39.1 % (35.4-49); HEMOGLOBIN 13.5 GM/dL (11.7-16.9); LYMPH % 27.3 % (8-40); MCHC 34.5 g/dl (32.0-35.9); MEAN PLT VOLUME 7.4 fl (7.5-11.1); MONO % 8.4 % (3.8-10.2); NEUT % 56.6 % (42.8-82.8); PLATELET COUNT 409 K/MM3 (134-434); RBC 4.49 M/mm3 (4.00-5.60); RDW 13.2 % (11.9-15.9); WHITE BLOOD COUNT 8.7 K/mm3 (4.0-10.0)
[2018-11-20 07:57] LABS: ALBUMIN 3.2 g/dl (3.4-5.0); ALK PHOS 58 U/L (45-117); ANION GAP 5 MMOL/L (8-16); BILIRUBIN,TOTAL 0.6 mg/dL (0.2-1); BLOOD UREA NITROGEN 13 mg/dL (7-18); CALCIUM 9.4 mg/dL (8.5-10.1); CHLORIDE 105 mmol/L (98-107); CO2 26 mmol/L (21-32); CREATININE 0.8 mg/dL (0.55-1.3); GLUCOSE,RANDOM 86 mg/dL (74-106); POTASSIUM 4.3 mmol/L (3.5-5.1); SGOT/AST 13 U/L (15-37); SGPT/ALT 23 U/L (13-61); SODIUM 136 mmol/L (136-145); TOT PROT 7.8 g/dl (6.4-8.2)
[2018-11-20] MEDS: ASPIRIN 81 MG CHEWABLE TABLETS PO SCH (11:03)
[2018-11-20] MEDS: metoPROLOL SUCCINATE 25 MG TAB.SR.24H (FP) PO SCH (11:03)
[2018-11-20] MEDS: HEPARIN NA (PORCINE) 5,000 UNITS/ML 1ML VIAL SQ SCH (11:13)
--- NOTE | 2018-11-20 14:58 | PN ---
Progress Note, Physician History of Present Illness: AWAKE, ALERT SEATED IN BED REPORTS OCCASIONAL DRY COUGH NO C/O PLEURITIC CHEST PAIN, NO C/O DYSPNEA NO FEVER/ CHILLS BLOOD C/S, LEGIONELLLA AG (-) - Current Medication List Current Medications: Active Medications Acetaminophen (Tylenol -) 650 mg PO Q6H PRN PRN Reason: FEVER Last Admin: 11/19/18 21:01 Dose: 650 mg Aspirin (Asa -) 81 mg PO DAILY [facility] Last Admin: 11/20/18 11:03 Dose: 81 mg Docusate Sodium (Colace -) 100 mg PO Q12H PRN PRN Reason: CONSTIPATION Heparin Sodium (Porcine) (Heparin -) 5,000 unit SQ DAILY [facility] Last Admin: 11/20/18 11:13 Dose: Not Given Levofloxacin (Levaquin -) 500 mg PO DAILY [facility] Metoclopramide HCl (Reglan Injection -) 10 mg IVPUSH Q6H PRN PRN Reason: NAUSEA AND/OR VOMITING Metoprolol Succinate (Toprol Xl -) 25 mg PO DAILY [facility] Last Admin: 11/20/18 11:03 Dose: 25 mg Senna (Senna -) 2 tab PO HS [facility] Last Admin: 11/19/18 21:03 Dose: Not Given - Objective Vital Signs: Vital Signs Temperature 98.6 F 11/20/18 06:10 Pulse Rate 66 11/20/18 06:10 Respiratory Rate 20 11/20/18 06:10 Blood Pressure 123/84 11/20/18 06:10 O2 Sat by Pulse Oximetry (%) 97 11/19/18 21:00 Constitutional: Yes: No Distress Eyes: Yes: Conjunctiva Clear Cardiovascular: Yes: Regular Rate and Rhythm, S1, S2 Respiratory: Yes: CTA Bilaterally Gastrointestinal: Yes: Normal Bowel Sounds, Soft. No: Tenderness Edema: No Labs: CBC, BMP 11/20/18 06:30 11/20/18 06:30 INR, PTT INR 1.23 (0.83-1.09) H 11/18/18 05:30 Assessment/Plan COMMUNITY ACQUIRED V. ATYPICAL RLL PNEUMONIA SMALL R PARAPNEUMONIC EFFUSION SUBSTITUTE LEVAQUIN 500MG PO QD X 7D OUTPATIENT FOLLOW UP
[2018-11-20 15:43] VITALS: BP 132/74; PULSE 77; TEMP 98.2
== END 2018-11-20 15:42 | disposition home or self-care (01) | DRG 194 ==
LOC: JER 14:18 → JERBED 16:35 → J5S 11-18 14:26
PROVIDERS: ADMIT Internal Medicine; ATTEND Internal Medicine
DX: J18.1 Lobar pneumonia, unspecified organism (principal); J90 Pleural effusion, not elsewhere classified; I25.10 Atherosclerotic heart disease of native coronary artery without angina pectoris; I10 Essential (primary) hypertension; E78.00 Pure hypercholesterolemia, unspecified
CPT/HCPCS: 36415; 71046-TC-FY; 71250-TC; 80053; 81003; 83605; 83735; 84100; 85025; 85610; 85651; 85730; 86140; 86682; 86738; 87040; 87804; 87899; 93005; 93010; 93306-TC; 99285-25; J1644

== ENCOUNTER 2019-08-11 14:20 | Emergency (ER) | payer BC ==
[2019-08-11 14:37] VITALS: BP 130/83; PULSE 99; TEMP 97.8; BMI 29.0
--- NOTE | 2019-08-11 14:38 | PDOC ---
History of Present Illness - General Chief Complaint: Chest Pain Stated Complaint: CHEST PAIN Time Seen by Provider: 08/11/19 14:38 History Source: Patient - History of Present Illness Initial Comments: 08/11/19 16:17 Mr. Jung is a 53 y/o man w/hx CAD (70-90% occlusion), HTN p/w two days of worsening chest tightness, increased fatigue, and sob. He reports chronic chest pain, and that this feels slightly different than his regular discomfort. 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 He describes the sensation as a mild tightness, alongside generalized weakness and shortness of breath on exertion that began two days ago. He denies any focal weakness, syncope or near syncope, palpitations, fevers, chills, cough , nausea, vomiting. He reports that two years ago he had a catheterization which measured an occlusion of 70-90%. He does not recall which blood vessel was occluded, but remembers being told that there were collateral vessels providing blood flow. He has not followed up with his staff mine warfare officer in "a long time". He is prescribed metoprolol for HTN but does not take it. Cardio - Dr. Smith ([facility]) PCP - Dr. Carrera Past History - Past Medical History Allergies/Adverse Reactions: Allergies Allergy/AdvReac Type Severity Reaction Status Date / Time Iodinated Contrast Media Allergy Verified 08/11/19 14:34 [Iodinated Contrast- Oral and IV Dye] contrast dye AdvReac Uncoded 08/11/19 14:34 Home Medications: Ambulatory Orders NK [No Known Home Medication] 08/11/19 Asthma: Yes COPD: No HTN: Yes - Immunization History Immunization Up to Date: Yes - Psycho Social/Smoking Cessation Hx Smoking Status: No Smoking History: Never smoked Have you smoked in the past 12 months: No Number of Cigarettes Smoked Daily: 0 Information on smoking cessation initiated: No Hx Alcohol Use: No Drug/Substance Use Hx: No Substance Use Type: None Hx Substance Use Treatment: No Review of Systems - Review of Systems Able to Perform ROS?: Yes Comments:: 08/11/19 16:27 ROS: GENERAL/CONSTITUTIONAL: No fever or chills. No weakness. HEAD, EYES, EARS, NOSE AND THROAT: No change in vision. No ear pain or discharge. No sore throat. CARDIOVASCULAR: Chest pain, shortness of breath RESPIRATORY: No cough, wheezing, or hemoptysis. GASTROINTESTINAL: No nausea, vomiting, diarrhea or constipation. GENITOURINARY: No dysuria, frequency, or change in urination. MUSCULOSKELETAL: No joint or muscle swelling or pain. No neck or back pain. SKIN: No rash NEUROLOGIC: No headache, vertigo, loss of consciousness, or change in strength/ sensation. ENDOCRINE: No increased thirst. No abnormal weight change HEMATOLOGIC/LYMPHATIC: No anemia, easy bleeding, or history of blood clots. ALLERGIC/IMMUNOLOGIC: No hives or skin allergy. *Physical Exam - Vital Signs Last Vital Signs Temp Pulse Resp BP Pulse Ox 97.8 F 99 H 18 130/83 98 08/11/19 14:34 08/11/19 14:34 08/11/19 14:34 08/11/19 14:34 08/11/19 14:34 - Physical Exam 08/11/19 16:27 PE: GENERAL: Awake, alert, and fully oriented, in no acute distress HEAD: No signs of trauma, normocephalic, atraumatic EYES: PERRLA, EOMI, sclera anicteric, conjunctiva clear ENT: Auricles normal inspection, hearing grossly normal, nares patent, oropharynx clear without exudates. Moist mucosa NECK: Normal ROM, supple, no lymphadenopathy, JVD, or masses LUNGS: No distress, speaks full sentences, clear to auscultation bilaterally HEART: Loud blowing systolic murmur appreciated over aortic region, Regular rate and rhythm, peripheral pulses normal and equal bilaterally. ABDOMEN: Soft, nontender, normoactive bowel sounds. No guarding, no rebound. No masses EXTREMITIES : Normal inspection, Normal range of motion, no edema. No clubbing or cyanosis NEUROLOGICAL: Cranial nerves II through XII grossly intact. Normal speech, normal gait, no focal sensorimotor deficits SKIN: Warm, Dry, normal turgor, no rashes or lesions noted ED Treatment Course - LABORATORY CBC & Chemistry Diagram: 08/11/19 15:10 08/11/19 15:10 Medical Decision Making - Medical Decision Making 08/11/19 16:28 53M w/hx CAD (catheterization 2 years ago - 70-90% occlusion of unspecified vessel), HTN (untreated), p/w change in his chronic chest pain alongside weakness, shortness of breath on exertion, most concerning for ACS. Infectious etiology also possible given generalized weakness with sob. Plan: CBC CMP Cardiac profile PT/INR PTT CXR EKG ASA 325mg Dispo: Admit --- Troponin negative CBC - wnl EKG - no acute change CXR - no acute process Plan for inpatient admission to telemetry obs. --- Case discussed with patient, he would like to instead leave AMA. He is fully alert, not intoxicated, able to discuss our reasons for wanting him to remain in the hospital. He will follow up with cardiology. Careful return precautions given as documented in AMA form, discharge paperwork. Discharge - Discharge Information Problems reviewed: Yes Clinical Impression/Diagnosis: Chest pain Qualifiers: Chest pain type: unspecified Qualified Code(s): R07.9 - Chest pain, unspecified Condition: Stable Disposition: AGAINST MEDICAL ADVICE - Admission Yes - Follow up/Referral Referrals: Louis Carrera MD [Primary Care Provider] - Anselmo Ryder MD [Staff Physician] - - Patient Discharge Instructions Patient Printed Discharge Instructions: DI for Atypical Chest Pain, DI for Chest Pain Additional Instructions: You were seen in the ER for chest pain. We are recommending that you stay in the hospital for inpatient admission, as discussed. If you change your mind and would like further workup please return to the hospital. Otherwise please see your staff mine warfare officer as soon as you are able to make an appointment, within 1-2 days. Please return to the ER if you develop weakness, worsening chest pain, shortness of breath, or any other symptoms that are concerning to you. - Post Discharge Activity Work/Back to School Note: Back to Work
--- NOTE | 2019-08-11 15:21 | PDOC ---
Documentation entered by Serena Benítez SCRIBE, acting as scribe for Jesscia Yeh DO. Jessica Yeh DO: This documentation has been prepared by the Jeyson gomez Andrys, SCRIBE, under my direction and personally reviewed by me in its entirety. I confirm that the documentation accurately reflects all work, treatment, procedures, and medical decision making performed by me. Attending Attestation - Resident Resident Name: JohanchrisJustin - ED Attending Attestation I have performed the following: I have examined & evaluated the patient, The case was reviewed & discussed with the resident, I agree w/resident's findings & plan, Exceptions are as noted - HPI HPI: 08/11/19 15:45 The patient is a 53 year old male with a significant past medical history of nonobstructive CAD s/p cath (70% stenosis in the past, no stents), HTN who presents to the ED with chest tightness for several days. Patient reports chronic chest discomfort that is slightly worse in the past couple of days. The patient also reports increased exercise intolerance, shortness of breath, and generalized weakness. Patient is noncompliant with metoprolol. Denies fever or chills. Denies abdominal pain, nausea, vomiting or diarrhea. Denies any other symptoms. - Physicial Exam PE: 08/11/19 15:45 Constitutional: Awake, alert, oriented. No acute distress. Head: Normocephalic. Atraumatic Eyes: PERRL. EOMI. Conjunctivae are not pale. ENT: Mucous membranes are moist and intact. Posterior pharynx without exudates or erythema. Uvula midline. Neck: Supple. Full ROM. No lymphadenopathy. Cardiovascular: Regular rate. Regular rhythm. S1, S2 regular. Distal pulses are 2+ and symmetric. Pulmonary/Chest: No evidence of respiratory distress. Clear to auscultation bilaterally No wheezing, rales or rhonchi. Abdominal: Soft and non-distended. There is no tenderness. No rebound, guarding or rigidity. No organomegaly. No palpable masses. Good bowel sounds. Back: No CVA tenderness. Musculoskeletal: No edema. No cyanosis. No clubbing. Full range of motion in all extremities. Nocalf tenderness. Radial/pedal pulses are intact and 2+ bilaterally Skin: Skin is warm and dry. No petechiae. No purpura. No rashes. Neurological: No gross focal deficits. Psychiatric: Good eye contact. Normal interaction, affect and behavior. - Medical Decision Making 08/11/19 15:20 I, Dr. Jessica Yeh, DO, attest that this document has been prepared under my direction and personally reviewed by me in its entirety. I further attest, that it accurately reflects all work, treatment, procedures and medical decision -making performed by me. 08/11/19 15:53 a/p: 53yo male with hx of hld, htn- not on meds who had an abnl stress test 2 years ago and cad on cath- no stents at [place] 2 years ago with intermittent cp/sob and exertional dyspnea -denies diaphoresis -denies radiation of the pain -signif other states exercise intolerance recently -pt denies pain at this time -no n/v/d -recent URI treated about a month ago with azithromycin -will send labs, concern for ACS, will send trop, asa, cxr, ekg -will monitor and reassess 08/11/19 16:46 trop neg labs reviewed chem still pending pt will need tele obs for acs 08/11/19 16:46 cxr clear asa given Heart Score/ECG Review - ECG Intrepretation Comment:: 08/11/19 15:20 sinus at 91, nl axis, nl inerval, st depression inferior leads, no acute t wave inversions, abnl ekg
[2019-08-11] MEDS ORDERED: ASPIRIN 325 MG ENTERIC COATED TABLET (FP) PO ONE (15:26)
[2019-08-11 15:42] LABS: BASO % 0.8 % (0-2.0); EOS % 3.3 % (0-4.5); HEMATOCRIT 41.2 % (35.4-49); HEMOGLOBIN 14.2 GM/dL (11.7-16.9); LYMPH % 20.1 % (8-40); MCH 30.2 pg (25.7-33.7); MCHC 34.4 g/dl (32.0-35.9); MEAN PLT VOLUME 8.3 fl (7.5-11.1); MONO % 9.1 % (3.8-10.2); NEUT % 66.7 % (42.8-82.8); PLATELET COUNT 231 K/MM3 (134-434); RBC 4.68 M/mm3 (4.00-5.60); RDW 13.3 % (11.9-15.9); WHITE BLOOD COUNT 8.5 K/mm3 (4.0-10.0)
[2019-08-11 15:56] LABS: INR 1.05 (0.83-1.09); PROTHROMBIN TIME (PATIENT) 12.4 SEC (9.7-13.0)
[2019-08-11] MEDS ORDERED: ASPIRIN 325 MG ENTERIC COATED TABLET (FP) ONE (16:17)
[2019-08-11 17:02] LABS: ALBUMIN 4.2 g/dl (3.4-5.0); BILIRUBIN,TOTAL 0.6 mg/dL (0.2-1); BLOOD UREA NITROGEN 14.2 mg/dL (7-18); CALCIUM 9.1 mg/dL (8.5-10.1); CREATININE 1.1 mg/dL (0.55-1.3); TOT PROT 7.9 g/dl (6.4-8.2)
[2019-08-11 17:03] LABS: POTASSIUM 4.1 mmol/L (3.5-5.1)
[2019-08-11 17:26] LABS: URINE APPEARANCE CLEAR; URINE BILIRUBIN NEGATIVE (NEGATIVE); URINE COLOR YELLOW; URINE GLUCOSE (UA) NEGATIVE (NEGATIVE); URINE KETONE NEGATIVE (NEGATIVE); URINE LEUK ESTERASE NEGATIVE (NEGATIVE); URINE NITRITE NEGATIVE (NEGATIVE); URINE PROTEIN NEGATIVE (NEGATIVE); URINE UROBILINOGEN 0.2 mg/dL (0.2-1.0)
--- NOTE | 2019-08-12 17:42 | EKG ---
Test Reason : Blood Pressure : / mmHG Vent. Rate : 091 BPM Atrial Rate : 091 BPM P-R Int : 154 ms QRS Dur : 082 ms QT Int : 364 ms P-R-T Axes : 064 001 -14 degrees QTc Int : 447 ms NORMAL SINUS RHYTHM POSSIBLE LEFT ATRIAL ENLARGEMENT NONSPECIFIC ST AND T WAVE ABNORMALITY ABNORMAL ECG WHEN COMPARED WITH ECG OF 17-NOV-2018 19:38, NO SIGNIFICANT CHANGE WAS FOUND Confirmed by JOSE MAGAÑA, JAMES ([id number]) on 08/12/2019 5:41:59 PM Referred By: Confirmed By:JAMES GARCIA MD
== END 2019-08-11 18:11 | disposition left against medical advice (07) ==
LOC: JER 14:20
DX: R07.9 Chest pain, unspecified (principal); Z91.041 Radiographic dye allergy status; I25.10 Atherosclerotic heart disease of native coronary artery without angina pectoris; I10 Essential (primary) hypertension
CPT/HCPCS: 36415; 71045-TC-FY; 80053; 81003; 82550; 82553; 84484; 85025; 85610; 85730; 87086; 93005; 93010; 99283-25